=== PATIENT | male | born 1950 | race Caucasian/White ===

== ENCOUNTER 2023-05-22 07:39 | Outpatient (CLI) | payer MEDICARE, OTHER ==
[2023-05-22] MEDS ORDERED: GASTROGRAFIN 30 ML BOT ONE (13:41)
[2023-05-22] MEDS ORDERED: Iopamidol 370 76% 100 ML VIAL ONE (13:41)
== END 2023-05-22 07:40 | disposition home or self-care (01) ==
LOC: CT 07:39
PROVIDERS: ATTEND Internal Medicine Hematology & Oncology
DX: C25.3 Malignant neoplasm of pancreatic duct (principal); R91.8 Other nonspecific abnormal finding of lung field; K86.89 Other specified diseases of pancreas; R18.8 Other ascites; J18.1 Lobar pneumonia, unspecified organism; K76.89 Other specified diseases of liver; I25.10 Atherosclerotic heart disease of native coronary artery without angina pectoris; I51.7 Cardiomegaly; N28.1 Cyst of kidney, acquired; M89.9 Disorder of bone, unspecified
CPT/HCPCS: 71260; 74177; Q9963; Q9967

== ENCOUNTER 2023-08-25 07:06 | Outpatient (CLI) | payer MEDICARE, OTHER | END 2023-08-25 07:07 | disposition home or self-care (01) | LOC: CT 07:06 | PROVIDERS: ATTEND Internal Medicine Hematology & Oncology | DX: C25.3 Malignant neoplasm of pancreatic duct (principal); K86.89 Other specified diseases of pancreas; S22.089A Unspecified fracture of T11-T12 vertebra, initial encounter for closed fracture; I25.10 Atherosclerotic heart disease of native coronary artery without angina pectoris; I70.0 Atherosclerosis of aorta; K57.30 Diverticulosis of large intestine without perforation or abscess without bleeding; K76.89 Other specified diseases of liver; K55.059 Acute (reversible) ischemia of intestine, part and extent unspecified; D73.89 Other diseases of spleen; N28.89 Other specified disorders of kidney and ureter; J98.4 Other disorders of lung; I51.7 Cardiomegaly; R91.1 Solitary pulmonary nodule; R16.1 Splenomegaly, not elsewhere classified; R18.8 Other ascites; Z98.890 Other specified postprocedural states | CPT/HCPCS: 71260; 74177 ==